=== PATIENT | female | born 1975 | race African-American/Black ===

== ENCOUNTER → 2020-02-24 | Outpatient (CLI) | payer OTHER ==
[~2020-02-24] MED LIST: AMOXICILLIN250 MG PO; COVID-19 VACC, MRNA(MODERNA)/PF 100 MCG/0.5 ML VIAL IM ONE; ULTRAM50 MG PO
== END ==
LOC: VACCPMC 09:31
DX: Z23 Encounter for immunization (principal); Z20.822 Contact with and (suspected) exposure to COVID-19

== ENCOUNTER → 2020-03-27 | Outpatient (CLI) | payer OTHER | END | DRG 951 | LOC: VACCPMC 08:27 | DX: Z23 Encounter for immunization (principal); Z20.822 Contact with and (suspected) exposure to COVID-19 | CPT/HCPCS: 0012A; 91301 ==